=== PATIENT | female | born 1945 | race Caucasian/White ===

== ENCOUNTER 2023-01-14 15:07 | Outpatient (OUT) | payer MEDICARE, SELFPAY ==
--- NOTE | 2023-01-14 15:09 | US_ITS ---
[address] [address] Patient Name: NILESH BRANNON MRN: [id number] date: 1945 Sex: F Assigned Patient Location: US Current Patient Location: Accession/Order Number: [id number] Exam Date: 01/14/2023 15:15 Report Date: 01/15/2023 07:25 At the request of: SOL SALGADO Procedure: US thyroid EXAMINATION: US thyroid HISTORY: Thyroid Nodule COMPARISON: 07/02/2022 TECHNIQUE: Sonographic images of the thyroid gland were obtained. FINDINGS: The right thyroid lobe measures 4.9 x 1.6 x 2.1 cm. Heterogeneous echotexture with 3 focal nodules. The thyroid isthmus measures 2.1 mm, heterogeneous. No focal nodule. The left thyroid lobe measures 4.7 x 1.5 1.6 cm. Heterogeneous with a single nodule over 5 mm. The 2 most suspicious nodules: Nodule 1: Right thyroid lobe: 1.5 x 1.0 x 1.2 cm, solid, hypoechoic, wide, smooth margins, no calcifications. TR 4 Nodule 2: Right thyroid lobe, 1.6 x 0.7 x 1.1 cm. Solid, hypoechoic, wide, smooth margins, no calcifications. TR 4. US/US thyroid IMPRESSION: Stable multinodular thyroid gland TI-RADS: The [employer] TI-RADS committee's white paper recommendations for thyroid lesions classified as TR4 (moderately suspicious) are listed below: > 1.0 cm. Follow-up ultrasound in 1, 2, 3, and 5 years. > 1.5 cm. FNA. J. Am Harsh Radiol 2017;14:587-595. Electronically authenticated by: PRISCILA VOGEL Date: 01/15/2023 07:25
== END 2023-01-14 15:08 | disposition home or self-care (01) ==
LOC: US 15:07
PROVIDERS: PCP Internal Medicine; Visit Provider Otolaryngology
DX: E04.1 Nontoxic single thyroid nodule (principal)
CPT/HCPCS: 76536

== ENCOUNTER 2023-08-19 14:29 | Outpatient (OUT) | payer MEDICARE, SELFPAY ==
--- NOTE | 2023-08-19 14:31 | US_ITS ---
[address] [address] Patient Name: NILESH BRANNON MRN: [id number] date: 1945 Sex: F Assigned Patient Location: US Current Patient Location: Accession/Order Number: [id number] Exam Date: 08/19/2023 14:32 Report Date: 08/20/2023 07:07 At the request of: SOL SALGADO Procedure: US thyroid EXAMINATION: US thyroid HISTORY: Nontoxic Multinodular Goiter E04.2 COMPARISON: 01/14/2023 TECHNIQUE: Sonographic images of the thyroid gland were obtained. FINDINGS: The right thyroid lobe measures 5.7 x 1.9 x 2.2 cm. Heterogeneous echotexture with multiple nodules. The thyroid isthmus measures 3 mm. No focal nodule. The left thyroid lobe measures 4.3 x 1.7 x 1.3 cm. Heterogeneous echotexture with multiple nodules. The 2 most suspicious nodules: Nodule 1: Right thyroid lobe. 1.5 x 0.9 x 1.2 cm. Solid, hypoechoic, wide, smooth margins, no calcifications. TR 4 Nodule 2: Left thyroid lobe. 0.5 x 0.4 x 0.6 cm. Solid, hypoechoic, wide, smooth margins, no calcifications. TR 4 US/US thyroid IMPRESSION: Multinodular thyroid gland, grossly stable TI-RADS: The [employer] TI-RADS committee's white paper recommendations for thyroid lesions classified as TR4 (moderately suspicious) are listed below: > 1.0 cm. Follow-up ultrasound in 1, 2, 3, and 5 years. > 1.5 cm. FNA. J. Am Harsh Radiol 2017;14:[id number]. Electronically authenticated by: PRISCILA VOGEL Date: 08/20/2023 07:07
== END 2023-08-19 14:30 | disposition home or self-care (01) ==
LOC: US 14:29
PROVIDERS: PCP Internal Medicine; Visit Provider Otolaryngology
DX: E04.2 Nontoxic multinodular goiter (principal)
CPT/HCPCS: 76536

== ENCOUNTER 2024-02-14 14:04 | Outpatient (OUT) | payer MEDICARE, SELFPAY ==
--- NOTE | 2024-02-14 14:10 | US_ITS ---
[address] [address] Patient Name: NILESH BRANNON MRN: [id number] date: 1945 Sex: F Assigned Patient Location: US Current Patient Location: Accession/Order Number: [id number] Exam Date: 02/14/2024 14:16 Report Date: 02/16/2024 05:16 At the request of: SOL SALGADO Procedure: US thyroid EXAMINATION: US thyroid HISTORY: Thyroid Nodule COMPARISON: Ultrasound thyroid 08/19/2023 FINDINGS: RIGHT LOBE: Enlarged, heterogeneous, and contains multiple nodules. The largest consistent of a 16 x 10 x 13 mm TR 4 within mid body, 16 x 8 x 10 mm TR 4 within inferior pole, an and 11 x 7 x 9 mm TR 4 within inferior pole. No appreciable change in size or appearance of the nodules. Lobe size: 5.0 x 1.8 x 1.8 cm LEFT LOBE: Enlarged, heterogeneous, and contains multiple nodules. The largest is a 5 x 3 x 6 mm TR 4 nodule within mid body. Lobe size: 4.8 x 1.6 x 1.67 m ISTHMUS: Heterogeneous echotexture, but normal thickness. Thickness: 2 mm US/US thyroid IMPRESSION: 1. Large heterogeneous thyroid gland containing multiple nodules suggestive of multinodular goiter. No appreciable change in size or number of nodules. By size criteria a right lobe nodule could be considered for biopsy. Otherwise consider follow-up imaging in one year. TR4 (moderately suspicious): If > 1.0 cm, follow-up ultrasound in 1, 2, 3, and 5 years. If > 1.5 cm, fine needle aspiration (FNA). TR3 (mildly suspicious): > 1.5 cm, follow-up ultrasound in 1, 3, and 5 years. > 2.5 cm, fine needle aspiration. Electronically authenticated by: GULSHAN IZAGUIRRE Date: 02/16/2024 05:16
== END 2024-02-14 14:05 | disposition home or self-care (01) ==
LOC: US 14:04
PROVIDERS: PCP Internal Medicine; Visit Provider Otolaryngology
DX: E04.1 Nontoxic single thyroid nodule (principal); E04.2 Nontoxic multinodular goiter
CPT/HCPCS: 76536